=== PATIENT | male | born 1950 | race Caucasian/White ===

== ENCOUNTER 2022-01-23 21:53 | Emergency (ER) | payer MEDICARE | END 2022-01-23 23:35 | disposition home or self-care (01) | LOC: FER 21:53 | DX: H92.21 Otorrhagia, right ear (principal); I10 Essential (primary) hypertension; F17.210 Nicotine dependence, cigarettes, uncomplicated; Z28.310 Unvaccinated for COVID-19 | CPT/HCPCS: 99282 ==